=== PATIENT | female | born 1930 | race Hispanic/Latino ===

== ENCOUNTER 2017-02-08 10:04 | Emergency (ER) | payer MEDICARE, OTHER ==
[~2017-02-08] VITALS: Ht 152.4 cm; Wt 54.4 kg
[~2017-02-08 10:04] MED LIST: AMLODIPINE BESYL5 MG PO; ARICEPT5 MG PO; ELOQUIS PO; GABAPENTIN100 MG PO; LORAZEPAM1 MG PO; MEGACE ES625 MG/5 M PO; NAMENDA XR PO; OMEPRAZOLE40 MG PO; SEROQUEL25 MG PO
[2017-02-08] MEDS ORDERED: SODIUM CHLORIDE 0.9% 1000ML 1,000 ML IV STA (10:55)
[2017-02-08 12:36] LABS: BASOPHILS % 0.2 % (0.0-1.0); BILIRUBIN,URINE NEGATIVE (NEGATIVE); EOSINOPHILS % 0.1 % (0.0-6.0); HEMATOCRIT 28.3 % (34.2-44.1); HEMOGLOBIN 8.4 g/dL (12.0-16.0); KETONES,URINE NEGATIVE (NEGATIVE); LEUKOCYTE ESTERASE ,URINE 2+ (NEGATIVE); LYMPHOCYTES % 6.6 % (18.0-39.1); MEAN CORPUSCULAR HEMOGLOBIN 27.5 pg (28-32); MEAN CORPUSCULAR HGB CONC 29.7 g/dL (31-35); MEAN CORPUSCULAR VOLUME 92.8 fL (81-99); MONOCYTES # (AUTO) 1.2 (0.2-0.8); MONOCYTES % 7.7 % (4.4-11.3); NEUTROPHILS # (AUTO) 13.2 (2.1-6.9); NEUTROPHILS % 84.6 % (38.7-80.0); NITRITE,URINE NEGATIVE (NEGATIVE); PLATELET COUNT 416 x10e3/uL (140-360); RED BLOOD COUNT 3.05 x10e6/uL (3.6-5.1); RED CELL DISTRIBUTION WIDTH 15.9 % (11.7-14.4); URINE UROBILINOGEN 0.2 mg/dL (0.2 - 1)
[2017-02-08 12:40] LABS: PROTEIN,URINE DIPSTICK 2+ (NEGATIVE)
[2017-02-08 13:00] LABS: ALBUMIN 2.8 g/dL (3.5-5.0); ALBUMIN/GLOBULIN RATIO 0.6 (0.8-2.0); ANION GAP 16.5 mmol/L (8-16); CALCIUM 9.4 mg/dL (8.4-10.2); CREATININE, SERUM 1.6 mg/dL (0.57-1.11); POTASSIUM 4.5 mmol/L (3.5-5.1)
[2017-02-08 13:06] LABS: AMORPHOUS SEDIMENT,URINE FEW (FEW); BACTERIA,URINE RARE /HPF; CLARITY,URINE SL CLOUDY (CLEAR); COLOR,URINE YELLOW (YELLOW); EPITHELIAL CELLS,URINE RARE /LPF; RBC,URINE 0-5 /HPF (0-5)
[2017-02-08 13:09] LABS: INR 1.05; PROTHROMBIN TIME 14.2 seconds (11.9-14.5)
[2017-02-08 13:10] LABS: PARTIAL THROMBOPLASTIN TIME 29.2 seconds (23.8-35.5)
[2017-02-08] MEDS ORDERED: CEFTRIAXONE SOD 1 GM VIAL INJ ONE (14:15)
[2017-02-08 14:33] VITALS: BP 124/82
== END 2017-02-08 15:11 | disposition home or self-care (01) ==
LOC: ER 10:04
DX: N30.91 Cystitis, unspecified with hematuria (principal); F03.90 Unspecified dementia, unspecified severity, without behavioral disturbance, psychotic disturbance, mood disturbance, and anxiety; I10 Essential (primary) hypertension; I50.9 Heart failure, unspecified
CPT/HCPCS: 36415; 80053; 81001; 85025; 85610; 85730; 86850; 86900; 99284; J0696; J7030

== ENCOUNTER 2017-03-09 16:16 | Inpatient (IN) | payer MEDICARE, OTHER ==
[~2017-03-09] VITALS: Ht 152.4 cm; Wt 38.6 kg
[2017-03-09] MEDS ORDERED: SODIUM CHLORIDE 0.9% 1000ML 1,000 ML IV STA (16:19)
[2017-03-09 16:38] LABS: BASOPHILS % 0.1 % (0.0-1.0); EOSINOPHILS % 0.1 % (0.0-6.0); HEMATOCRIT 27.7 % (34.2-44.1); LYMPHOCYTES # (AUTO) 1.7 (1.0-3.2); LYMPHOCYTES % 9.8 % (18.0-39.1); MEAN CORPUSCULAR HEMOGLOBIN 27.1 pg (28-32); MEAN CORPUSCULAR HGB CONC 27.8 g/dL (31-35); MEAN CORPUSCULAR VOLUME 97.5 fL (81-99); MONOCYTES # (AUTO) 0.5 (0.2-0.8); NEUTROPHILS # (AUTO) 15.3 (2.1-6.9); NEUTROPHILS % 86.2 % (38.7-80.0); PLATELET COUNT 119 x10e3/uL (140-360); RED BLOOD COUNT 2.84 x10e6/uL (3.6-5.1); RED CELL DISTRIBUTION WIDTH 19.1 % (11.7-14.4)
[2017-03-09 16:43] LABS: HEMOGLOBIN 7.7 g/dL (12.0-16.0)
[2017-03-09] MEDS ORDERED: VANCOMYCIN 1GM/NS 250 ML 250 ML IV ONE (16:45)
[2017-03-09 16:46] LABS: INR 1.08; PROTHROMBIN TIME 14.6 seconds (11.9-14.5)
[2017-03-09] MEDS ORDERED: SODIUM CHLORIDE 0.9% 500ML 500 ML IV STA (16:46)
[2017-03-09 16:47] LABS: PARTIAL THROMBOPLASTIN TIME 30.4 seconds (23.8-35.5)
[2017-03-09 16:56] LABS: BILIRUBIN,URINE NEGATIVE (NEGATIVE); CLARITY,URINE HAZY (CLEAR); COLOR,URINE YELLOW (YELLOW); KETONES,URINE NEGATIVE (NEGATIVE); LEUKOCYTE ESTERASE ,URINE 2+ (NEGATIVE); NITRITE,URINE NEGATIVE (NEGATIVE); URINE UROBILINOGEN 0.2 mg/dL (0.2 - 1)
[2017-03-09 16:57] LABS: PROTEIN,URINE DIPSTICK 2+ (NEGATIVE)
[2017-03-09 17:04] LABS: ALBUMIN 2.1 g/dL (3.5-5.0); ALBUMIN/GLOBULIN RATIO 0.5 (0.8-2.0); ANION GAP 22.5 mmol/L (8-16); CALCIUM 8.8 mg/dL (8.4-10.2); MAGNESIUM 2.3 MG/DL (1.3-2.1); POTASSIUM 4.5 mmol/L (3.5-5.1)
[2017-03-09 17:06] LABS: B-TYPE NATRIURETIC PEPTIDE2 4852.3 pg/mL (0-100)
--- NOTE | 2017-03-09 17:10 | Diagnostic Imaging Report ---
PROCEDURE: A single AP view of the chest. COMPARISON: Patients [facility], , CHEST 2 VIEWS, 12/28/2016, 18:57. Findings: Exam limited by patient rotation. Lines: Stable left upper chest, single lead cardiac device Lungs: Lungs are well-inflated. Patchy opacity in the left retrocardiac region. Right lung is grossly clear. Pleura: Blunting of the left lateral costophrenic sulcus Heart and mediastinum: Stable enlarged cardiac silhouette. Pulmonary vasculature is normal. Bones: No acute bony abnormality. Stable healed left clavicular fracture. IMPRESSION: 1. patchy opacity in the left retrocardiac region may represent atelectasis, pneumonia or aspiration. 2. Blunting of the left lateral costophrenic sulcus, which may be artifactual, secondary to rotation versus pleural thickening or small volume pleural effusion. Gian Patel M.D. Dictated by: Gian Patel M.D. on 03/09/2017 at 17:19 Electronically approved by: Gian Patel M.D. on 03/09/2017 at 17:19
[2017-03-09 17:15] LABS: AMORPHOUS SEDIMENT,URINE MODERATE (FEW); RBC,URINE 0-5 /HPF (0-5); WBC,URINE (MAN) 0-5 /HPF (0-5)
[2017-03-09 17:16] LABS: CREATINE KINASE MB 3.2 ng/mL (0.00-5.00); THYROID STIMULATING HORMONE 5.124 uIU/mL (0.350-4.940)
[2017-03-09] MEDS: CEFEPIME HCL 2 GM VIAL IV SCH (17:18)
[2017-03-09] MEDS ORDERED: DEXTROSE 5%/0.45% SOD CHL 1,000 ML IV ONE ×2 (17:30→17:45)
[2017-03-09] MEDS ORDERED: LORAZEPAM INJ 2 MG/ML VIAL IV PRN (18:15)
[2017-03-09 18:26] LABS: LYMPHOCYTES % (MANUAL) 8 % (19-48); NEUTROPHILS % (MANUAL) 92 % (40-74)
[2017-03-09 18:28] LABS: ANISOCYTOSIS SLIG; HYPOCHROMASIA SLIGHT; PLATELET ESTIMATE SLIGHTLY DECREASED; PLATELET MORPHOLOGY COMMENT NORMAL; POIKILOCYTOSIS SLIG; RBC MORPHOLOGY COMMENT NORMAL
[2017-03-09] MEDS ORDERED: CLONIDINE HCL 0.1 MG TAB PO PRN (19:00)
[2017-03-09] MEDS ORDERED: SODIUM CHLORIDE 0.9% 500ML 500 ML IV ONE (19:15)
[2017-03-09] MEDS ORDERED: ONDANSETRON HCL INJ 2 MG/ML VIAL IV PRN (22:45)
[2017-03-09] MEDS: LORAZEPAM INJ 2 MG/ML VIAL IV PRN (22:50)
[2017-03-09] MEDS ORDERED: LORAZEPAM INJ 2 MG/ML VIAL ONE (22:53)
[2017-03-10] MEDS: MORPHINE SULFATE 2 MG/ML SYR IV PRN ×2 (01:00→05:24)
[2017-03-10] MEDS: LORAZEPAM INJ 2 MG/ML VIAL IV PRN (02:45)
[2017-03-10] MEDS: CEFEPIME HCL 2 GM VIAL IV SCH (05:24)
[2017-03-10] MEDS ORDERED: CARBIDOPA/LEVODOPA 25/100 TAB PO SCH (09:00)
[2017-03-10] MEDS ORDERED: CARVEDILOL 3.125 MG TAB PO SCH (09:00)
[2017-03-10] MEDS ORDERED: WARFARIN SOD 3 MG TAB PO SCH (17:00)
[2017-03-10 17:06] LABS: ANION GAP 26.1 mmol/L (8-16); CALCIUM 8.2 mg/dL (8.4-10.2); CREATININE, SERUM 6.59 mg/dL (0.57-1.11); POTASSIUM 5.1 mmol/L (3.5-5.1)
[2017-03-11] MEDS: CEFEPIME HCL 2 GM VIAL IV SCH ×2 (05:00→17:00)
[2017-03-12] MEDS: CEFEPIME HCL 2 GM VIAL IV SCH (05:00)
--- NOTE | 2017-05-02 06:50 | Discharge Summary ---
SUMMARY CHIEF COMPLAINT 1. Altered mental status. 2. Dehydration. 3. Hypernatremia. FINAL DIAGNOSES 1. Acute respiratory failure. 2. Dementia. HOSPITAL COURSE: An 86-year-old female with known history of dementia, coronary artery disease, atrial fib, hypertension, and GERD, brought to the ER with a 2-day history of increasing lethargy and hypotension. Underwent review in the ER. Studies were showing sodium elevated at 171, BUN is elevated at 207, creatinine 7.0, white blood cell count 17,000 with anemic findings of hemoglobin 7.7. She was revealing a BP of 76/55, pulse 78. Demonstrating inspiratory rales. Noted to be unresponsive. Condition was discussed with family members and the decision was made to keep patient comfortable. Presented with DNR protocols. They were signed by power of grip boss. The patient was admitted to facility for care regarding findings of acute respiratory failure, acute renal failure, severe dehydration, dementia, and anemia. Will be on IV fluids. Will be going with the wishes of the DNR protocol. Patient will be given comfort measures. Discussions were also being placed for hospice care. On the floor, patient was being n.p.o. status, was on BiPAP, continuing to be unresponsive. Was started on cefepime 2 g IV q.12 h, lorazepam for agitation, and morphine for pain. As mentioned, her early sodium was 171, BUN was 207, creatinine 7. Glucose 179. White cell count 17.7, hemoglobin 7.7. She continued to be resting comfortably, was in no acute distress. Condition was clearly terminal. On March 12, 2017, house physician ER was asked to see the patient, and by DNR wishes, at 0755 hours, patient was pronounced . Dictated by: RAJNI Londono Job#: [id number]
== END 2017-03-12 07:55 | disposition expired | DRG 871 ==
LOC: ER 16:16 → ERHOLD 20:02 → MED/SURG3 22:12
DX: A41.9 Sepsis, unspecified organism (principal); J96.90 Respiratory failure, unspecified, unspecified whether with hypoxia or hypercapnia; J96.00 Acute respiratory failure, unspecified whether with hypoxia or hypercapnia; N17.9 Acute kidney failure, unspecified; E87.0 Hyperosmolality and hypernatremia; E86.0 Dehydration; F03.90 Unspecified dementia, unspecified severity, without behavioral disturbance, psychotic disturbance, mood disturbance, and anxiety; Z66 Do not resuscitate; Z51.5 Encounter for palliative care; K21.9 Gastro-esophageal reflux disease without esophagitis; I48.91 Unspecified atrial fibrillation; I25.10 Atherosclerotic heart disease of native coronary artery without angina pectoris; D64.9 Anemia, unspecified
CPT/HCPCS: 36415; 71045; 80048; 80053; 81001; 82550; 82553; 83605; 83735; 83880; 84443; 84484; 85025; 85610; 85730; 86850; 86900; 86920; 87040; 87086; 93005; 94660; 99284; J0692; J2060; J2270; J3370; J7030; J7040